=== PATIENT | male | born 1975 | race African-American/Black ===

== ENCOUNTER → 2016-08-05 | Outpatient (CLI) | payer OTHER ==
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
== END | disposition home or self-care (01) ==
LOC: CEEG 12:20
DX: R56.9 Unspecified convulsions (principal); V89.2XXA Person injured in unspecified motor-vehicle accident, traffic, initial encounter
CPT/HCPCS: 95816